=== PATIENT | female | born 1960 | race Two or more races ===

== ENCOUNTER 2022-03-31 11:15 | Inpatient (IN) | payer OTHER ==
[~2022-03-31] VITALS: Ht 162.6 cm; Wt 152.0 kg
[2022-03-31] MEDS ORDERED: GLIMEPIRIDE2 MG (14:31)
[2022-03-31] MEDS ORDERED: LIPITOR20 MG (14:32)
[2022-03-31] MEDS ORDERED: TELMISARTAN-HC1 EAC2 (14:32)
[2022-03-31] MEDS ORDERED: SYNTHROID125 MCG (14:32)
[2022-03-31] MEDS ORDERED: HORIZANT600 MG (14:32)
[2022-04-01] MEDS ORDERED: DICLOFENAC POTA50 MG (14:16)
[2022-04-01] MEDS ORDERED: GABAPENTIN800 M1 (14:16)
== END 2022-04-05 10:40 | disposition home or self-care (01) | DRG 740 ==
LOC: O/R 04-01 07:56 → OB/GYN 04-01 07:56 → SURG 04-01 11:15 → OB/GYN 04-02 01:10
PROVIDERS: ADMIT Specialist; ATTEND Specialist
PROC: 0UT70ZZ Resection of Bilateral Fallopian Tubes, Open Approach (ICD-10-PCS; 2022-04-01)
PROC: 0UT20ZZ Resection of Bilateral Ovaries, Open Approach (ICD-10-PCS; 2022-04-01)
PROC: 0DNW0ZZ Release Peritoneum, Open Approach (ICD-10-PCS; 2022-04-01)
PROC: 07BC0ZZ Excision of Pelvis Lymphatic, Open Approach (ICD-10-PCS; 2022-04-01)
PROC: 0DQ80ZZ Repair Small Intestine, Open Approach (ICD-10-PCS; 2022-04-01)
PROC: 3E1M38Z Irrigation of Peritoneal Cavity using Irrigating Substance, Percutaneous Approach (ICD-10-PCS; 2022-04-01)
PROC: 0UT90ZZ Resection of Uterus, Open Approach (ICD-10-PCS; principal; 2022-04-01 12:45)
DX: C54.1 Malignant neoplasm of endometrium (principal); K91.72 Accidental puncture and laceration of a digestive system organ or structure during other procedure; Z20.822 Contact with and (suspected) exposure to COVID-19

== ENCOUNTER 2022-04-08 10:46 | Inpatient (IN) | payer OTHER ==
[~2022-04-08] VITALS: Ht 162.6 cm; Wt 152.0 kg
[~2022-04-08 10:46] MED LIST: DICLOFENAC POTA50 MG; GABAPENTIN800 M1; GLIMEPIRIDE2 MG; HORIZANT600 MG; LIPITOR20 MG; SYNTHROID125 MCG; TELMISARTAN-HC1 EAC2
== END 2022-04-18 14:14 | disposition home or self-care (01) | DRG 863 ==
LOC: ER 10:46 → SURG 16:02
PROVIDERS: ADMIT Specialist; ATTEND Specialist
PROC: BW21ZZZ Computerized Tomography (CT Scan) of Abdomen and Pelvis (ICD-10-PCS; principal; 2022-04-08)
DX: T81.49XA Infection following a procedure, other surgical site, initial encounter (principal); K56.0 Paralytic ileus; Z68.43 Body mass index [BMI] 50.0-59.9, adult; E66.01 Morbid (severe) obesity due to excess calories; T81.89XA Other complications of procedures, not elsewhere classified, initial encounter; B95.4 Other streptococcus as the cause of diseases classified elsewhere; B96.5 Pseudomonas (aeruginosa) (mallei) (pseudomallei) as the cause of diseases classified elsewhere; B96.89 Other specified bacterial agents as the cause of diseases classified elsewhere; B95.2 Enterococcus as the cause of diseases classified elsewhere; Y65.8 Other specified misadventures during surgical and medical care; Y92.89 Other specified places as the place of occurrence of the external cause